=== PATIENT | female | born 1970 | race African-American/Black ===

== ENCOUNTER 2019-07-03 06:02 | Day surgery (SDC) | payer BC ==
--- NOTE | ~2019-07-03 | O ---
[facility] [place] [address] [address] OPERATIVE REPORT Name: ROBERT WEN Room #: 150-5 [facility]..#: [id number] Admission: 07/03/19 Attend Phys: Nigel Jeong MD Discharge: Date of : 72 Report #: [id number] THIS REPORT FOR: //name// CC: Lisbet Jeong MD DATE OF SERVICE: 07/03/2019 PATIENT OF: Dr. Nigel Jeong and Dr. Lisbet Mullins. PREOPERATIVE DIAGNOSES: Left buttock skin lesion measuring 5 x 3 cm, right axillary hidradenitis suppurativa, measuring 10 x 5.5 cm, and left axillary hidradenitis suppurativa, measuring 3.5 x 3 cm. POSTOPERATIVE DIAGNOSES: Left buttock skin lesion measuring 5 x 3 cm, right axillary hidradenitis suppurativa, measuring 10 x 5.5 cm, and left axillary hidradenitis suppurativa, measuring 3.5 x 3 cm. PROCEDURES: Excision of left buttock skin lesion measuring 5 x 3 cm with complex layered closure, excision of right axillary hidradenitis suppurativa with a complex layered closure, measuring 10 x 5.5 cm, and excision of a left axillary hidradenitis suppurativa with complex layered closure, measuring 3.5 x 3 cm. SURGEON: Nigel Jeong MD. ANESTHESIA: Local and IV sedation. DESCRIPTION OF PROCEDURE: The patient was brought to the operating room and placed on operating table in the prone position. The left buttock area was prepped and draped in a sterile fashion. Skin and subcutaneous tissue were then infiltrated with 0.5% Marcaine and 1% Xylocaine in a 1:1 mixture. Elliptical skin incision was performed around this 5 x 3 cm area using a #15 scalpel blade. Hemostasis was obtained using electrocautery. Dissection was carried down through subcutaneous tissue and the area was completely excised using the electrocautery. The deep and superficial subcutaneous tissue were then reapproximated using simple interrupted 3-0 Vicryl sutures. The skin was then closed using interrupted vertical mattress 3-0 nylon sutures. The wound was then dressed with triple antibiotic ointment, Telfa, 4 x 4 gauze, sponge, and tape. The patient was then placed in the supine position and both axillae were then prepped and draped in a sterile fashion. Starting on the right side, an area of 10 cm x 5.5 cm right axillary hidradenitis was excised elliptically using a #10 scalpel blade and hemostasis was obtained using electrocautery. Dissection was carried down through the subcutaneous tissue and the skin and [address] [address] OPERATIVE REPORT Name: ROBERT WEN Room #: 150-5 [facility] M.R.#: [id number] Admission: 07/03/19 Attend Phys: Nigel Jeong MD Discharge: Date of : 72 Report #: [id number] subcutaneous tissue were then completely excised using the electrocautery and sent as specimen to pathology. Once again deep and superficial subcutaneous tissue was then reapproximated using simple interrupted 2-0 Vicryl sutures and the skin was then closed with interrupted vertical mattress 3-0 nylon sutures. The wound was then dressed with antibiotic ointment, Telfa, 4 x 4 gauze, sponge, and tape. Attention was then turned to the left axilla, which was once again prepped and draped in a sterile fashion. Skin and subcutaneous tissue were infiltrated with the 0.5% Marcaine and 1% Xylocaine in a 1:1 mixture. 3.5 x 3 cm area was excised using #10 scalpel blade and sent as specimen to pathology. Meticulous hemostasis was obtained in the area using the electrocautery. Deep and superficial subcutaneous tissue were then reapproximated using simple interrupted 2-0 chromic sutures and the skin was then closed with interrupted vertical mattress 3-0 nylon sutures. The wound was then dressed with antibiotic ointment, Telfa, 4 x 4 gauze, sponge, and tape. The patient was then taken to the recovery room awake, alert, and in good condition. Estimated blood loss was approximately a total of 20 mL for all 3 procedures and the patient tolerated procedure well. All sponge, lap, and instrument counts correct x 2. By: [id number] Nigel Jeong MD /nt
[~2019-07-03 06:02] MED LIST: ALLEGRA ALLERG180 MG PO; ATIVAN1 MG PO; HYDROXYZINE HCL25 M2; MUCINEX TA600 MG/TA1 PO; MUCINEX600 MG PO; MULTI VITAMIN1 EACH PO; NORCO 5-325 TA1 EACH; NORVASC5 MG PO; PRILOSEC20 MG PO; SINGULAIR 10 MG10 M1 PO; XOLAIR150 MG; ZYRTEC10 M5
[2019-07-03 07:02] VITALS: BP 152/92
[2019-07-03] MEDS ORDERED: NORCO 5-325 TA1 EAC1 PO (08:46)
--- NOTE | 2019-07-03 11:30 | H ---
[facility] [place] [address] [place] [address] HISTORY AND PHYSICAL Name: ROBERT WEN Room #: 150-5 [facility]..#: [id number] Admission: 07/03/19 Attend Phys: Nigel Jeong MD Discharge: Date of : 72 Report #: [id number] THIS REPORT FOR: //name// CC: Lisbet Jeong PATIENT OF: Dr. Nigel Jeong and Dr. Lisbet Mullins. Date of surgery is 07/03/2019. CHIEF COMPLAINT: "Pain, drainage from my buttocks and armpits." HISTORY OF PRESENT ILLNESS: The patient is a 48-year-old female who I originally saw on January 2019 for bilateral axillary hidradenitis as well as a wound on her left buttock. We treated the buttock wound a couple of times with silver nitrate and it continues to recur. She states that her axillary hidradenitis comes and goes. This was a little worse recently, particularly it got more severe on the right side much smaller on the left. Left buttock wound has also recurred. No fever or chills. She does have some drainage from the axillary sites. She now presents for surgical treatment. PAST SURGICAL HISTORY: Cholecystectomy in 2011, partial hysterectomy in 1999, tubal ligation in 1998, appendectomy in 1974. PAST MEDICAL HISTORY: Hypertension. MEDICATIONS: Di, Zyrtec, Xolair, omeprazole, furosemide, sulfa, hydroxyzine, montelukast, lorazepam. ALLERGIES: None. FAMILY HISTORY: Noncontributory. SOCIAL HISTORY: Single, does not smoke or drink alcohol. REVIEW OF SYSTEMS: Pertinent positives as above. Full review of systems is otherwise negative. PHYSICAL EXAMINATION: GENERAL: Well-developed, well-nourished, obese -Swazi female, in no acute distress. VITAL SIGNS: Stable. She is afebrile. Height is 5 feet 6 inches, weight is 217 pounds, BMI of 35.56. HEENT: Sclerae are nonicteric. Mucous membranes moist and pink. NECK: There is no adenopathy, no thyromegaly. LUNGS: Clear to auscultation bilaterally. Normal excursion. CARDIOVASCULAR: Regular rate and rhythm. No murmurs, S3, S4. No PMI. [address] [address] HISTORY AND PHYSICAL Name: ROBERT WEN Room #: 150-5 [facility] M..#: [id number] Admission: 07/03/19 Attend Phys: Nigel Jeong MD Discharge: Date of : 72 Report #: [id number] ABDOMEN: Obese, soft, flat and nontender. No palpable masses. No organomegaly. No hernias. EXTREMITIES: In the right axilla, there is a 7 x 3 cm area of hidradenitis. In the left axilla, there is a 2.5 x 2 cm area of hidradenitis. On the left buttock, there is a 3 x 2 cm raised granulation appearing tissue. NEUROLOGIC: Intact with clear mental status. IMPRESSION: A 48-year-old female with nonhealing wound on left buttock and bilateral areas of axillary hidradenitis, the right greater than the left. I fully discussed with the patient the diagnosis, prognosis and treatment options, the risks and benefits of each. She states she understands and agrees to proposed surgery. PLAN: We will perform excision of bilateral axillary hidradenitis, left buttock nonhealing wound under local IV sedation in the prone and supine positions as an outpatient at [facility]. The procedure and its risks, benefits and possible complications fully discussed with the patient. She states she understands and agrees to proposed surgery. <ELECTRONICALLY SIGNED> By: Nigel Jeong MD 07/03/19 [phone] Nigel Jeong MD /nt
[2019-07-03 11:33] VITALS: BP 152/92
--- NOTE | 2019-07-08 08:06 | PATH ---
[facility] [place] [address] PATHOLOGY RPT PROCEDURE Name: CHARLENE WEN Room #: DEP [facility] M.R.#: [id number] Admission: 07/03/19 Date of : 72 Discharge: 07/03/19 Report #: [id number] Path Case #: [id number] [facility] Accession Number: [id number] . 01 Material submitted: . PART A: buttock - LEFT BUTTOCK LESION. Modifiers: left PART B: axillary tail of breast - RIGHT AXILLARY HIDRADENITIS. Modifiers: right PART C: axillary tail of breast - LEFT AXILLARY HIDRADENITIS. Modifiers: left . 01 Clinical history: . Hydradenitis suppurativa . 02 Diagnosis: A. Skin, left buttock lesion, excision: - Marked acute and chronic inflammation along with a giant cell reaction, as well as abscess formation compatible with reaction to a ruptured cyst. - Focal residual squamous epithelium present within dermis, likely residual mature keratinous cyst. - Overlying squamous epithelium showing pseudoepitheliomatous changes; negative for malignancy. - Completely excised. . B. Skin, right axillary hidradenitis, excision: - Compatible with acute hidradenitis. - Overlying squamous epithelium showing focal seborrheic keratosis along with reactive changes; negative for dysplasia or malignancy. . C. Skin, left axillary hidradenitis, excision: - Compatible with acute hidradenitis. - Squamous epithelium showing reactive changes; negative for dysplasia or malignancy. . (IUV:benigno; 07/05/2019) QMS 07/05/2019 1409 Local . 02 Electronically signed: . Neva Yang MD, Pathologist NPI- [id number] . 01 Gross description: . A. The specimen is received in formalin, labeled "Charlene Wen, left buttock lesion" and consists of an unoriented ovoid segment of vallejo-brown skin measuring 4.0 x 2.5 cm excised to a depth of 1.5 cm. Present on the surface is an oval pink raised lesion measuring 2.7 x 1.2 cm that is 0.3 cm from the nearest peripheral edge. The margin is inked [place] [address] PATHOLOGY RPT PROCEDURE Name: CHARLENE WEN Room #: DEP [facility] M.R.#: [id number] Admission: 07/03/19 Date of : 72 Discharge: 07/03/19 Report #: [id number] Path Case #: [id number] serially sectioned and entirely submitted in A1-A11 with the ends in A11. . B. The specimen is received in formalin, labeled "Charlene Wen, right axillary hydradenitis" and consists of an unoriented oval segment of brown vallejo skin measuring 7.1 x 3.8 cm excised to a maximum depth of 2.5 cm. Present on the surface are a few raised pink lim lesions measuring between 0.8 cm and 1.8 cm. Sectioning reveals cystic abscess deep to the epidermis. Hop Picker sections are submitted in B1-B3. . C. The specimen is received in formalin, labeled "Charlene Wen, left axillary hydradenitis" and consists of an unoriented skin ellipse measuring 3.3 x 1.7 x 1.0 cm displaying a raised pink-lim lesion measuring 1.5 x 0.8 cm. Sectioning reveals abscess deep to the lesion. Hop Picker sections are submitted in C1-C2. (TAWNYAY; 07/03/2019) /GHAZAL 07/05/2019 [facility] Local . 02 Pathologist provided ICD-10: L72.0, L73.2 . 02 CPT . 982679, 501279, 855503 Specimen Comment: A courtesy copy of this report has been sent to [phone] Specimen Comment: [phone] Specimen Comment: Report sent to / DR LÓPEZ Specimen Comment: Report sent to Performed at: [address] [facility], [place], [place] [id number] MD Red Zepeda MD Phone: [phone] Performed at: [address] [facility] [id number] MD Neva Yang MD Phone: [phone]
== END 2019-07-03 12:40 | disposition home or self-care (01) ==
LOC: OR 06:02 → TBA 06:03 → OR 07:36
DX: L73.2 Hidradenitis suppurativa (principal); L72.0 Epidermal cyst; L02.31 Cutaneous abscess of buttock; T81.49XA Infection following a procedure, other surgical site, initial encounter; I10 Essential (primary) hypertension; K21.9 Gastro-esophageal reflux disease without esophagitis; Z90.49 Acquired absence of other specified parts of digestive tract; Z98.51 Tubal ligation status; Z90.711 Acquired absence of uterus with remaining cervical stump; Z79.899 Other long term (current) drug therapy; Z79.891 Long term (current) use of opiate analgesic; Y83.8 Other surgical procedures as the cause of abnormal reaction of the patient, or of later complication, without mention of misadventure at the time of the procedure
CPT/HCPCS: 50010; 50101; 50386; 50403; 56524; 56527; 62110; 62850; 70005

== ENCOUNTER 2019-09-15 07:19 | Emergency (ER) | payer BC ==
[~2019-09-15] VITALS: Ht 167.6 cm; Wt 96.2 kg
[~2019-09-15 07:19] MED LIST changes: +NORCO 5-325 TA1 EAC1 PO
[2019-09-15 09:47] VITALS: BP 136/84
[2019-09-15] MEDS ORDERED: REGLAN 5 MG TAB5 MG PO (09:48)
== END 2019-09-15 09:58 | disposition home or self-care (01) ==
LOC: ER 07:19
DX: J10.1 Influenza due to other identified influenza virus with other respiratory manifestations (principal); I10 Essential (primary) hypertension; K21.9 Gastro-esophageal reflux disease without esophagitis; Z90.49 Acquired absence of other specified parts of digestive tract; Z98.51 Tubal ligation status

== ENCOUNTER 2020-09-30 06:21 | Day surgery (SDC) | payer BC ==
[~2020-09-30] VITALS: Ht 167.6 cm; Wt 67.1 kg
--- NOTE | ~2020-09-30 | O ---
[facility] [place] [address] [place] [address] OPERATIVE REPORT Name: ROBERT WEN Room #: 150-4 [facility] M.R.#: [id number] Admission: 09/30/20 Attend Phys: Nigel Jeong MD Discharge: Date of : 72 Report #: [id number] THIS REPORT FOR: cc: Lisbet Mullins MD,Lisbet Jeong,Nigel Pan MD ~ DATE OF SERVICE: 09/30/[address] The patient's of Dr. Lisbet Mullins and Dr. Nigel Jeong. PREOPERATIVE DIAGNOSIS: Extensive chronic severe left axillary recurrent hidradenitis measuring 12 cm x 5 cm. POSTOPERATIVE DIAGNOSIS: Extensive chronic severe left axillary recurrent hidradenitis measuring 12 cm x 5 cm. PROCEDURE: Wide local excision of a 12 cm x 5 cm area of extensive left axillary recurrent hidradenitis with complex layered reconstructive closure. SURGEON: Dr. Nigel Jeong ANESTHESIA: Local IV sedation. DESCRIPTION OF PROCEDURE: The patient was brought to the operating room and placed on operative table in the supine position. The left arm was placed out on arm board. The patient was given appropriate preoperative dose of Ancef. The area was then prepped and draped in a sterile fashion. Skin and subcutaneous tissue were then infiltrated with 0.5% Marcaine plain and 1% Xylocaine with epinephrine. Elliptical 12 cm x 5 cm elliptical area was incised and using #10 scalpel blade. Hemostasis obtained using the electrocautery. Dissection was carried down through the subcutaneous tissue to the fascia. This entire area was then excised using the electrocautery and sent as specimen to pathology. Meticulous hemostasis was checked and obtained in the area using the electrocautery. After assuring hemostasis was intact, the deep and superficial subcutaneous tissue was then reapproximated using simple and a dybkwm-gr-outim 2-0 chromic sutures. Skin was then closed using interrupted vertical mattress 3-0 nylon sutures. The wound was then dressed with antibiotic ointment, Telfa, 4 x 4 gauze, sponge and tape. The patient was then taken to the recovery room awake, alert and in good condition. Estimated blood loss was approximately 10 mL and the patient tolerated procedure well. All sponge, lap and instrument counts correct x 2. By: [id number] Nigel Jeong MD /nt
[~2020-09-30 06:21] MED LIST changes: +CHLORTHALIDONE25 MG PO; +PRAVACHOL 20 MG20 M1 PO; +REGLAN 5 MG TAB5 MG PO
[2020-09-30 08:05] VITALS: BP 144/99
[2020-09-30] MEDS ORDERED: HYDROCODON-ACE1 EAC7 PO (08:08)
[2020-09-30 10:06] VITALS: BP 144/99
--- NOTE | 2020-10-02 16:06 | PATH ---
[facility] [address] [place] [address] PATHOLOGY RPT PROCEDURE Name: CHARLENE WEN Room #: DEP [facility] M.R.#: [id number] Admission: 09/30/20 Date of : 72 Discharge: 09/30/20 Report #: [id number] Path Case #: [id number] [facility] Accession Number: [id number] . 01 Material submitted: . soft tissue - LEFT AXILLARY HYDRADENITIS. Modifiers: left . 02 Diagnosis: Skin with underlying soft tissue "left axillary hiadrenitis": - Epidermal ulceration with extensive granulation tissue and acute and chronic inflammation. - Ruptured epidermal inclusion cyst with foreign body giant cell reaction. - Surrounding reactive squamous epithelial hyperplasia. - There is no evidence of malignancy. (SHA:benigno 10/02/2020) S 10/02/2020 1113 Local . 02 Electronically signed: . Heriberto Garcia MD, Pathologist NPI- [id number] . 01 Gross description: . The specimen is received in formalin, labeled "Charlene Wen, left axillary hidradenitis". Received is an ellipse of skin with attached underlying fibroadipose tissue measuring 9.8 x 6.5 x 2.9 cm in greatest dimensions. The epidermal surface displays to pink-vallejo, abscess-appearing areas measuring 1.5 x 1.1 and 1.8 x 1.2 cm. Sectioning reveals a linear sinus tract measuring 2.4 cm in length. The specimen is submitted representatively in cassettes A1 and A2. (CAA; 09/30/2020) QA/QA 09/30/2020 1229 Local . 02 Pathologist provided ICD-10: L98.499, L08.9, L72.0 . 02 CPT . 416161 Specimen Comment: A courtesy copy of this report has been sent to [phone] Specimen Comment: Report sent to Performed at: 01 [facility] [address] [place] [address] [address], [place] [id number] MD Heriberto Garcia MD Phone: [phone] Performed at: [address] [id number] MD Argelia Roladn MD Phone: [phone]
== END 2020-09-30 10:40 | disposition home or self-care (01) ==
LOC: TBA 06:21 → OR 06:21 → TBA 06:25 → OR 10:40
PROVIDERS: ATTEND Surgery
DX: L73.2 Hidradenitis suppurativa (principal); I10 Essential (primary) hypertension; K21.9 Gastro-esophageal reflux disease without esophagitis; Z98.890 Other specified postprocedural states; Z79.899 Other long term (current) drug therapy; Z90.49 Acquired absence of other specified parts of digestive tract; Z90.711 Acquired absence of uterus with remaining cervical stump; Z98.51 Tubal ligation status; Z88.2 Allergy status to sulfonamides
CPT/HCPCS: 50010; 50101; 50386; 50403; 56524; 56525; 62110; 62850; 70005